=== PATIENT | female | born 1945 | race Caucasian/White ===

== ENCOUNTER 2016-10-31 13:42 | Emergency (ER) | payer MEDICARE ==
[~2016-10-31] VITALS: Ht 162.6 cm; Wt 98.0 kg
[~2016-10-31 13:42] MED LIST: BENA1TAB44 PO; BENA20 PO; CO QCAP PO; METO25CR PO; MULT-118 PO; MULT-65 PO; PRIL40CA PO; RED600TA PO; WAL-10TA2 PO; ZOFR4TAB3 SL
[2016-10-31 13:50] VITALS: BP 157/70; PULSE 83; RESP 16; TEMP 97.8; O2SAT 95
[2016-10-31] MEDS ORDERED: COQ130CA PO (16:15)
[2016-10-31] MEDS ORDERED: RED600TA PO (16:15)
[2016-10-31] MEDS ORDERED: BENA20TA4 PO (16:15)
[2016-10-31] MEDS ORDERED: METO25TA6 PO (16:15)
[2016-10-31] MEDS ORDERED: OMEP40CA2 PO (16:15)
[2016-10-31] MEDS ORDERED: MULT1TAB46 PO (16:15)
[2016-10-31] MEDS ORDERED: BENA20TA PO (16:15)
--- NOTE | 2016-10-31 16:28 | PD ---
HPI Chief Complaint: Eye Problems/Injury Time Seen by Provider: 16:12 Travel History International Travel<30 days: No Contact w/Intl Traveler<30days: No Traveled to known affect area: No History of Present Illness HPI The patient is a 71-year-old female who presents emergency department for flashes and floaters in the right eye. The patient states she developed early floater in the right eye 2 days ago dislocated at the 8 o'clock position on o' clock, when she moves her eye to left or right, the small spot always stays in the same area. The patient then developed a small amount of flashing in the affected area earlier today. The patient is afraid she may have a retinal detachment and sought treatment in the emergency department. She denies any visual acuity changes, photophobia, eye pain, redness, tearing, or history of retinal detachment. She denies any trauma to the right eye or associated headache. Symptoms are mild, there are no current alleviating or exacerbating factors. PFSH Past Medical History Arthritis: Yes (KNEES) Asthma: No Atrial Fibrillation: Yes (PER PATIENT) Heart Rhythm Problems: Yes (afib when devlops HTN EPISODES) Cardiovascular Problems: Yes High Cholesterol: Yes (DIET CONTROLLED) Chest Pain: No Congestive Heart Failure: No COPD: No Cerebrovascular Accident: No Diabetes: No Diminished Hearing: Yes ([place]) Gastrointestinal Disorders: Yes GERD: No Genitourinary: No Hepatitis: No Hiatal Hernia: No Hypertension: Yes Kidney Stones: No Musculoskeletal: No Neurologic: No Reproductive: No Respiratory: No Immunizations Current: No Migraines: No Myocardial Infarction: No Renal Failure: No Seizures: No Sleep Apnea: No Ulcer: No PNEUMOCCOCAL Vaccine (Year): 2008 Menopausal: Yes Past Surgical History Abdominal Surgery: No Appendectomy: Yes Cardiac Surgery: No Cholecystectomy: No Ear Surgery: No Endocrine Surgery: No Eye Surgery: No Genitourinary Surgery: No Gynecologic Surgery: Yes (HYSTERECTOMY) Hysterectomy: Yes Oral Surgery: No Thoracic Surgery: No Other Surgery: Yes (2 MOLES REMOVED AXILLA AREA) Social History Alcohol Use: Yes (SOCIALLY) Tobacco Use: No (NEVER) Substance Use: No Allergies-Medications (Allergen,Severity, Reaction): Coded Allergies: tetanus toxoid, adsorbed (Unverified Allergy, Severe, Swelling, 10/31/16) erythromycin base (Unverified Allergy, Mild, NAUSEA, 10/31/16) Reported Meds & Prescriptions Reported Meds & Active Scripts Active Reported Red Yeast Rice (Red Yeast Rice Extract) 600 Mg Tab 1,200 Mg PO BID Omeprazole 40 Mg Cap 40 Mg PO DAILY Multi Vitamin Daily (Multiple Vitamin) 1 Tab Tab 1 Tab PO DAILY Metoprolol Succinate ER 24 HR (Metoprolol Succinate) 25 Mg Tab 25 Mg PO DAILY Coq10 (Coenzyme Q10 (Ubidecarenone)) 30 Mg Cap 1 Tab PO DAILY Benazepril-Hydrochlorothiazide 20-25 Mg Tab 1 Tab PO DAILY Benazepril (Benazepril HCl) 20 Mg Tab 20 Mg PO DAILY Review of Systems Except as stated in HPI: all other systems reviewed are Neg Eyes: Positive: Other (as noted in the history of present illness), No: Diploplia, Blurred Vision, Photophobia, Drainage, Redness, Foreign Body Sensation, Pain, Tearing, Blind Spots HENT: No: Headaches Gastrointestinal: No: Nausea, Vomiting Physical Exam Narrative GENERAL: Awake, alert, pleasant 71-year-old female who appears her stated age and is in no acute respiratory distress. SKIN: Focused skin assessment warm/dry. HEAD: Atraumatic. Normocephalic. EYES: Pupils equal and round. Pupils are 4 mm bilateral and reactive. EOMs are intact. Patient is a was see fingers at a distance of 2 feet without difficulty. I exam reveals vision of the right 20/200, left 20/25, bilateral 20 /20. There is no injection noted of the conjunctiva. No hyphema noted. Funduscopic examination reveals a clear disc, I cannot visualize an obvious detachment. ENT: No nasal bleeding or discharge. Mucous membranes pink and moist. NECK: Trachea midline. No JVD. MUSCULOSKELETAL: No obvious deformities. No clubbing. No cyanosis. No edema. NEUROLOGICAL: Awake and alert. No obvious cranial nerve deficits. Motor grossly within normal limits. Normal speech. PSYCHIATRIC: Appropriate mood and affect; insight and judgment normal. Data Data Last Documented VS Vital Signs Date Time Temp Pulse Resp B/P (MAP) Pulse Ox O2 Delivery O2 Flow Rate FiO2 10/31/16 13:50 97.8 83 16 157/70 (99) 95 Room Air MDM Medical Decision Making Medical Screen Exam Complete: Yes Emergency Medical Condition: Yes Medical Record Reviewed: Yes Differential Diagnosis Differential diagnosis includes retinal detachment, vitreous hemorrhage, flashes /floaters, hyphema. Narrative Course The patient has flashes and floaters, could be idiopathic vitreous floater versus retinal detachment is versus choroidal lesion. The patient is advised to follow-up with circular saw filer as soon as possible. Diagnosis Primary Impression: Vitreous floaters of right eye Referrals: Cinthya Ladd MD 2 days F/U with Wednesday if you do not follow up with your circular saw filer, Dr. Demarco Additional Instructions: Follow-up with your circular saw filer as soon as possible. Disposition: 01 DISCHARGE HOME Condition: Stable Mitchell Howell MD Oct 31, 2016 16:28
== END 2016-10-31 16:59 | disposition home or self-care (01) ==
LOC: PHED 13:42 → PHEFT 16:59
DX: H43.391 Other vitreous opacities, right eye (principal); E78.00 Pure hypercholesterolemia, unspecified; H57.9 Unspecified disorder of eye and adnexa; H91.90 Unspecified hearing loss, unspecified ear; I10 Essential (primary) hypertension; I48.91 Unspecified atrial fibrillation
CPT/HCPCS: 99282

== ENCOUNTER 2016-11-30 09:30 | Observation (INO) | payer MEDICARE ==
[~2016-11-30] VITALS: Ht 162.6 cm; Wt 97.5 kg
[2016-11-30] VITALS (9 sets, daily range): BP systolic 152–193; BP diastolic 82–102; PULSE 68–89; RESP 18–20; TEMP 97–97.6; O2SAT 96–100
[~2016-11-30 09:30] MED LIST changes: -BENA1TAB44 PO; -BENA20 PO; +BENA20TA PO; +BENA20TA4 PO; -CO QCAP PO; +COQ130CA PO; -METO25CR PO; +METO25TA6 PO; -MULT-118 PO; -MULT-65 PO; +MULT1TAB46 PO; +OMEP40CA2 PO; -PRIL40CA PO; -WAL-10TA2 PO; -ZOFR4TAB3 SL
--- NOTE | 2016-11-30 09:54 | PD ---
HPI Chief Complaint: Dizziness Time Seen by Provider: 09:38 Travel History International Travel<30 days: No Contact w/Intl Traveler<30days: No Traveled to known affect area: No History of Present Illness HPI This is a 71-year-old female who presents to the emergency department with vertigo. She started to have dizziness this morning when she woke up from sleep and the room was spinning and she felt like she was drunk that she hasn't drank anything, constant, severe, improved with resting but not completely gone away. She doesn't think it's worse to one side or the other. She has thrown up and has difficulty walking. She denies any headache. She's not been sick recently. PFSH Past Medical History Arthritis: Yes (KNEES) Asthma: No Atrial Fibrillation: Yes (PER PATIENT) Heart Rhythm Problems: Yes (afib when devlops HTN EPISODES) Cardiovascular Problems: Yes High Cholesterol: Yes (DIET CONTROLLED) Chest Pain: No Congestive Heart Failure: No COPD: No Cerebrovascular Accident: No Diabetes: No Diminished Hearing: Yes (SOME [place]) Gastrointestinal Disorders: Yes GERD: No Genitourinary: No Hepatitis: No Hiatal Hernia: No Hypertension: Yes Kidney Stones: No Musculoskeletal: No Neurologic: No Reproductive: No Respiratory: No Immunizations Current: No Migraines: No Myocardial Infarction: No Renal Failure: No Seizures: No Sleep Apnea: No Ulcer: No Influenza Vaccination: Yes PNEUMOCCOCAL Vaccine (Year): 2008 ?: Not Menopausal: Yes Past Surgical History Abdominal Surgery: No Appendectomy: Yes Cardiac Surgery: No Cholecystectomy: No Ear Surgery: No Endocrine Surgery: No Eye Surgery: No Genitourinary Surgery: No Gynecologic Surgery: Yes (HYSTERECTOMY) Hysterectomy: Yes Neurologic Surgery: No Oral Surgery: No Thoracic Surgery: No Other Surgery: Yes (2 MOLES REMOVED AXILLA AREA) Social History Alcohol Use: Yes (SOCIALLY) Tobacco Use: No (NEVER) Substance Use: No Allergies-Medications (Allergen,Severity, Reaction): Coded Allergies: tetanus toxoid, adsorbed (Unverified Allergy, Severe, Swelling, 11/30/16) erythromycin base (Unverified Allergy, Mild, NAUSEA, 11/30/16) Reported Meds & Prescriptions Reported Meds & Active Scripts Active Reported Red Yeast Rice (Red Yeast Rice Extract) 600 Mg Tab 1,200 Mg PO BID Omeprazole 40 Mg Cap 40 Mg PO DAILY Multi Vitamin Daily (Multiple Vitamin) 1 Tab Tab 1 Tab PO DAILY Metoprolol Succinate ER 24 HR (Metoprolol Succinate) 25 Mg Tab 25 Mg PO DAILY Coq10 (Coenzyme Q10 (Ubidecarenone)) 30 Mg Cap 1 Tab PO DAILY Benazepril-Hydrochlorothiazide 20-25 Mg Tab 1 Tab PO DAILY Benazepril (Benazepril HCl) 20 Mg Tab 20 Mg PO DAILY Review of Systems Except as stated in HPI: all other systems reviewed are Neg Physical Exam Narrative GENERAL:Well appearing, no acute distress SKIN: Focused skin assessment warm and dry. HEAD: Atraumatic. Normocephalic. EYES: Pupils equal and round. No injection or drainage. ENT: Moist mucous membranes NECK: Trachea midline. CARDIOVASCULAR: Regular rate and rhythm. No murmur appreciated. RESPIRATORY: Clear to auscultation. Breath sounds equal bilaterally. GASTROINTESTINAL: Abdomen soft, non-tender, nondistended. MUSCULOSKELETAL: No obvious deformities. NEUROLOGICAL: Awake and alert. No obvious cranial nerve deficits. No ataxia. No dysarthria. Horizontal nystagmus to the left. PSYCHIATRIC: Appropriate mood and affect; insight and judgment normal. Data Data Last Documented VS Vital Signs Date Time Temp Pulse Resp B/P (MAP) Pulse Ox O2 Delivery O2 Flow Rate FiO2 11/30/16 11:15 74 18 177/89 (118) 99 Room Air 11/30/16 09:44 97.6 Orders Orders Mri Brain W/O Contrast (11/30/16 ) Meclizine (Antivert) (11/30/16 10:00) Complete Blood Count With Diff (11/30/16 12:29) Comprehensive Metabolic Panel (11/30/16 12:29) ^ Insert Iv (11/30/16 12:29) Ondansetron Inj (Zofran Inj) (11/30/16 12:30) Sodium Chlor 0.9% 1000 Ml Inj (Ns 1000 M (11/30/16 12:30) Ckmb (Isoenzyme) Profile (11/30/16 12:29) Troponin I (11/30/16 12:29) MDM Medical Decision Making Medical Screen Exam Complete: Yes Emergency Medical Condition: Yes Interpretation(s) Last 24 hours Impressions Brain MRI 11/30/16 0000 Signed Impressions: Service Date/Time: Wednesday, November 30, 2016 11:49 - CONCLUSION: There is no restricted diffusion suggest acute stroke 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 Contrasted MRI is suggested Partially empty sella. There is no evidence for acoustic neuroma There is no mastoid disease. Kun Stinson MD FACR Differential Diagnosis BPPV, vestibular neuritis, stroke, tumor Narrative Course This is a 71-year-old female who presents to the emergency department with vertigo. Given her age and clinical features an MRI was obtained which demonstrates a mass in the lateral ventricle. I doubt this is related to her symptoms but she doesn't feel any better following meclizine. She is unable to stand. Patient will be placed in observation for continued symptomatic control and MRI with contrast. Diagnosis Primary Impression: Vertigo Admitting Information Admitting Physician Requests: Observation Scripts Meclizine HCl (Meclizine 25) 25 Mg Tab 25 MG PO Q6H Y for dizziness, vertigo, #31 TAB Prov: Graciela Solorio MD 12/01/16 Payton Kelly MD Nov 30, 2016 09:54
[2016-11-30] MEDS ORDERED: MECLIZINE HCL 25 MG TAB PO ONE (10:00)
--- NOTE | 2016-11-30 12:15 | RADRPT ---
EXAM DATE/TIME: 11/30/2016 11:49 [facility] COMPARISON: No previous studies available for comparison. INDICATIONS : Stroke. MEDICAL HISTORY : None. SURGICAL HISTORY : Appendectomy. Hysterectomy. ENCOUNTER: Initial ACUITY: 1 day PAIN SCORE: 7/10 LOCATION: Bilateral cranial TECHNIQUE: Multiplanar, multisequence MRI of the brain was performed without contrast. FINDINGS: There is no restricted diffusion to suggest infarction. Ventricular size is appropriate. Scattered pe riventricular white matter changes are noted. There is a 1 cm intraventricular mass left lateral ventricle incompletely evaluated on this exam with out contrast. There is no parenchymal hemorrhage. Partial empty sella is evident. Posterior fossa is unremarkable. There are no significant extra-axial fluid collections appreciated. 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 Contrasted MRI is suggested Partially empty sella. There is no evidence for acoustic neuroma There is no mastoid disease. Kun Stinson MD FACR on November 30, 2016 at 12:10 Board Certified Radiologist. This report was verified electronically.
[2016-11-30] MEDS ORDERED: ONDANSETRON HCL 4 MG/2 ML VIAL IV PUSH ONE (12:30)
[2016-11-30] MEDS ORDERED: SODIUM CHLOR 0.9% 1000 ML INJ 1,000 ML IV ONE (12:30)
[2016-11-30] MEDS ORDERED: LISINOPRIL 20 MG TAB PO ONE (13:00)
[2016-11-30] MEDS ORDERED: METOPROLOL SUCCINATE 25 MG EXTENDED RELEASE TAB PO ONE (13:00)
[2016-11-30] MEDS ORDERED: PROCHLORPERAZINE 25 MG SUPP RECTAL PRN (13:15)
[2016-11-30] MEDS ORDERED: ONDANSETRON HCL 4 MG/2 ML VIAL IVP PRN (13:15)
[2016-11-30] MEDS ORDERED: MECLIZINE HCL 25 MG TAB PO PRN (13:15)
[2016-11-30] MEDS ORDERED: ACETAMINOPHEN 325 MG TAB PO PRN (13:15)
[2016-11-30] MEDS ORDERED: NALOXONE HCL 0.4 MG/ML AMP IV PUSH PRN (13:15)
[2016-11-30] MEDS ORDERED: LISINOPRIL 20 MG TAB PO SCH (13:30)
[2016-11-30] MEDS ORDERED: HYDROCHLOROTHIAZIDE 25 MG TAB PO ONE (13:30)
[2016-11-30 13:48] LABS: AUTOMATED NEUTROPHIL # 6.7 TH/MM3 (1.8-7.7); BASOPHIL % 0.3 % (0.0-2.0); EOSINOPHIL % 0.5 % (0.0-4.0); HEMO FLAGS DIFF FINAL; LYMPH % 16.7 % (9.0-44.0); LYMPHOCYTE # 1.4 TH/MM3 (1.0-4.8); MEAN CELL VOLUME 83.4 FL (80.0-100.0); MEAN CORPUSCULAR HEMOGLOBIN 27.4 PG (27.0-34.0); MEAN CORPUSCULAR HGB CONC 32.9 % (32.0-36.0); MONO % 2.7 % (0.0-8.0); NEUT % 79.8 % (16.0-70.0); PLATELET COUNT 421 TH/MM3 (150-450); RED BLOOD COUNT 5.16 MIL/MM3 (4.00-5.30); RED CELL DISTRIBUTION WIDTH 13.2 % (11.6-17.2); WHITE BLOOD COUNT 8.3 TH/MM3 (4.0-11.0)
[2016-11-30 13:52] LABS: CHLORIDE 98 MEQ/L (98-107); POTASSIUM 3.8 MEQ/L (3.5-5.1); SODIUM (NA) 133 MEQ/L (136-145)
[2016-11-30 13:56] LABS: ANION GAP 10 MEQ/L (5-15); BICARBONATE 24.8 MEQ/L (21.0-32.0); BLOOD UREA NITROGEN 11 MG/DL (7-18)
[2016-11-30 13:59] LABS: ALT (GPT) 25 U/L (10-53); AST (GOT) 20 U/L (15-37); GLOMERULAR FILTRATION RATE 64 ML/MIN (>89)
[2016-11-30 14:01] LABS: TOTAL BILIRUBIN ADULT 0.8 MG/DL (0.2-1.0)
[2016-11-30] MEDS: HEPARIN SODIUM - SQ 10,000 UNITS/ML VIAL SQ SCH ×2 (14:01→20:29)
[2016-11-30 14:02] LABS: ALKALINE PHOSPHATASE 107 U/L (45-117)
[2016-11-30 14:03] LABS: CREATINE KINASE 62 U/L (26-192)
[2016-11-30] MEDS ORDERED: GADODIAMIDE PF 287 MG/ML 20 ML VIAL (for RAD MRI) IVCONTRAST ONE (16:00)
[2016-11-30] MEDS: SODIUM CHLOR 0.9% 1000 ML INJ 1,000 ML IV SCH (16:26)
--- NOTE | 2016-11-30 16:32 | RADRPT ---
EXAM DATE/TIME: 11/30/2016 15:38 [facility] COMPARISON: MRI BRAIN W/O CONTRAST, November 30, 2016, 11:49. INDICATIONS : Tumor. CONTRAST: 20 cc Omniscan (gadodiamide) IV MEDICAL HISTORY : Hypertension. SURGICAL HISTORY : Appendectomy. Hysterectomy. ENCOUNTER: Initial ACUITY: 1 day PAIN SCORE: 2/10 LOCATION: Bilateral cranial TECHNIQUE: Multiplanar, multisequence MRI of the brain was performed both prior to and following the administrat ion of paramagnetic contrast. FINDINGS: There is a mildly T2 hyperintense and T1 hypointense mass in the left lateral ventricle measuring 10 x 8 mm. It demonstrates no definite internal enhancement. Also, demonstrates no restricted diffusion or blood products. Lateral ventricles are normal in size. It has mild local mass effect on the adjace nt septum pellucidum. No other mass is visualized. There is stable mild periventricular white matter signal change. Otherwi se, there has been no significant change from the study performed earlier today. CONCLUSION: The 10 mm left lateral ventricle mass demonstrates no significant enhancement and no other lesions ar e seen. 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 Suggest correlation with clinical history to ensure that there are no primary tumors which could meta stasize. Imaging features are not typical for a choroid plexus cyst or meningioma. If etiology remain s uncertain suggest followup imaging to confirm stability. Prem Dias MD on November 30, 2016 at 16:23 Board Certified Radiologist. This report was verified electronically.
--- NOTE | 2016-11-30 17:27 | HHI.HP ---
[facility] Service [facility] Primary Care Physician Soren Shane MD Admission Diagnosis vertigo Diagnoses: (1) Dizziness Diagnosis: Principal (2) Brain mass Diagnosis: Principal (3) Hypertension Diagnosis: Principal Chief Complaint: Dizziness Travel History International Travel<30 Days: No Contact w/Intl Traveler <30 Da: No Traveled to Known Affected Are: No History of Present Illness Written by Ramón Maldonado, acting as scribe for Dr. Orosco on 11/30/16 at 17: 18. 71-year-old female with known history of hypertension, gastroesophageal reflux, chronic sinusitis, who presented to the hospital because of acute onset of dizziness. Patient states that she was in her normal state of health until this morning. She was doing well she went to sleep and woke up at 2 AM to go to the restroom and she felt a little dizzy at that time. However when she woke up at 6 AM she had severe dizziness. She cannot ambulate without holding onto furniture and the drew. She states that she felt as if the room was spinning. She compared it to being on a 3 day alcohol binge and having a severe hangover. Patient did have one episode of vomiting with the dizziness. Sleep that she thinks he vomited up her morning medications. Patient came to the emergency department for evaluation. She was given Antivert with significant improvement of her symptoms. She states that the room is no longer spinning. She has been able to walk to the restroom without any complications. Patient did have an MRI performed which did indicate a intraventricular mass. Further MRI studies were requested. 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 Patient is doing well this time. ER physician recommended patient be observed in the hospital for further recommendations. Patient denies any fever, chills, upper respiratory symptoms, visual changes, patient does have chronic tinnitus. She has had recent ophthalmology evaluation 4 weeks ago and found to have floaters in her right eye. Review of Systems Constitutional: COMPLAINS OF: Dizziness Gastrointestinal: COMPLAINS OF: Nausea, Vomiting Except as stated in HPI: all other systems reviewed are Neg Past Family Social History Past Medical History Hypertension Gastroesophageal reflux Chronic sinusitis Past Surgical History Hysterectomy Appendectomy Reported Medications Reported Meds & Active Scripts Active Reported Red Yeast Rice (Red Yeast Rice Extract) 600 Mg Tab 1,200 Mg PO BID Omeprazole 40 Mg Cap 40 Mg PO DAILY Multi Vitamin Daily (Multiple Vitamin) 1 Tab Tab 1 Tab PO DAILY Metoprolol Succinate ER 24 HR (Metoprolol Succinate) 25 Mg Tab 25 Mg PO DAILY Coq10 (Coenzyme Q10 (Ubidecarenone)) 30 Mg Cap 1 Tab PO DAILY Benazepril-Hydrochlorothiazide 20-25 Mg Tab 1 Tab PO DAILY Benazepril (Benazepril HCl) 20 Mg Tab 20 Mg PO DAILY Allergies: Coded Allergies: tetanus toxoid, adsorbed (Unverified Allergy, Severe, Swelling, 11/30/16) erythromycin base (Unverified Allergy, Mild, NAUSEA, 11/30/16) Family History Reviewed is significant for father at age 56 from myocardial infarction. Mother at 86 with dementia Social History Patient denies any tobacco, alcohol or illicit drugs Physical Exam Vital Signs Vital Signs Date Time Temp Pulse Resp B/P (MAP) Pulse Ox O2 Delivery O2 Flow Rate FiO2 11/30/16 16:14 98 21 11/30/16 15:15 97.2 84 20 183/87 (119) 98 11/30/16 14:40 11/30/16 13:49 70 18 181/85 (117) 98 Room Air 11/30/16 11:15 74 18 177/89 (118) 99 Room Air 11/30/16 10:02 68 18 176/82 (113) 100 Room Air 11/30/16 09:44 97.6 78 18 193/97 (129) 98 Physical Exam GENERAL: Well-developed, well-nourished, in no acute distress. alert and orientated HEENT: Head is normocephalic without any lesions or masses noted. Facial features are symmetric. Eyes: Pupils equal round reactive to light. Extraocular muscles are intact. Conjunctivae were clear. Oropharyngeal: Pharynx without any erythema edema. Tongue is midline without deviation. Buccal mucosa is moist without any masses or lesions NECK: Supple without any masses. Trachea midline no deviation. No JVD, no bruits are appreciated. Patient had mild dizziness on full neck extension CARDIAC: Regular rhythm, regular rate. S1/S2 are heard. No murmurs gallops or rubs. LUNGS: Clear to auscultation bilaterally. No wheeze, rhonchi or rales. No use of accessory muscles on inspiration or expiration. ABDOMEN: Soft, nontender. Nondistended. Bowel sounds heard in all 4 quadrants. No organomegaly or masses. Negative rebound, negative guarding EXTREMITIES: No edema, pulses are equal bilaterally. No cyanosis or clubbing NEUROLOGY: Mood and affect appear appropriate. Cranial nerves II through XII grossly intact. Muscle strength 5/5 in upper and lower extremities bilaterally. Deep tendon reflexes are 2+ in upper and lower extremities bilaterally. Negative [facility] Laboratory Tests Test 11/30/16 13:40 White Blood Count 8.3 Red Blood Count 5.16 Hemoglobin 14.1 Hematocrit 43.0 Mean Corpuscular Volume 83.4 Mean Corpuscular Hemoglobin 27.4 Mean Corpuscular Hemoglobin Concent 32.9 Red Cell Distribution Width 13.2 Platelet Count 421 Mean Platelet Volume 7.6 Neutrophils (%) (Auto) 79.8 Lymphocytes (%) (Auto) 16.7 Monocytes (%) (Auto) 2.7 Eosinophils (%) (Auto) 0.5 Basophils (%) (Auto) 0.3 Neutrophils # (Auto) 6.7 Lymphocytes # (Auto) 1.4 Monocytes # (Auto) 0.2 Eosinophils # (Auto) 0.0 Basophils # (Auto) 0.0 CBC Comment DIFF FINAL Differential Comment Blood Urea Nitrogen 11 Creatinine 0.87 Random Glucose 104 Total Protein 7.5 Albumin 3.5 Calcium Level 8.7 Alkaline Phosphatase 107 Aspartate Amino Transf (AST/SGOT) 20 Alanine Aminotransferase (ALT/SGPT) 25 Total Bilirubin 0.8 Sodium Level 133 Potassium Level 3.8 Chloride Level 98 Carbon Dioxide Level 24.8 Anion Gap 10 Estimat Glomerular Filtration Rate 64 Total Creatine Kinase 62 Troponin I LESS THAN 0.02 Result Diagram: 11/30/16 1340 11/30/16 1340 Imaging Last Impressions Brain MRI 11/30/16 0000 Signed Impressions: Service Date/Time: Wednesday, November 30, 2016 15:38 - CONCLUSION: The 10 mm left lateral ventricle mass demonstrates no significant enhancement and no other lesions are seen. 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 Suggest correlation with clinical history to ensure that there are no primary tumors which could metastasize. Imaging features are not typical for a choroid plexus cyst or meningioma. If etiology remains uncertain suggest followup imaging to confirm stability. MD Pratik Douglass VTE Risk Assessment Caprini VTE Risk Assessment: Mod/High Risk (score >= 2) Caprini Risk Assessment Model Point Value = 1 Point Value = 2 Point Value = 3 Point Value = 5 Age 41-60 Minor surgery BMI > 25 kg/m2 Swollen legs Varicose veins or History of unexplained or recurrent spontaneous Oral contraceptives or hormone replacement Sepsis (< 1 month) Serious lung disease, including pneumonia (< 1 month) Abnormal pulmonary function Acute myocardial infarction Congestive heart failure (< 1 month) History of inflammatory bowel disease Medical patient at bed rest Age 61-74 Arthroscopic surgery Major open surgery (> 45 min) Laparoscopic surgery (> 45 min) Malignancy Confined to bed (> 72 hours) Immobilizing plaster cast Central venous access Age >= 75 History of VTE Family history of VTE Factor V Leiden Prothrombin [id number] Lupus anticoagulant Anticardiolipin antibodies Elevated serum homocysteine Heparin-induced thrombocytopenia Other congenital or acquired thrombophilia Stroke (< 1 month) Elective arthroplasty Hip, pelvis, or leg fracture Acute spinal cord injury (< 1 month) Prophylaxis Regimen Total Risk Factor Score Risk Level Prophylaxis Regimen 0-1 Low Early ambulation 2 Moderate Order ONE of the following: *Sequential Compression Device (SCD) *Heparin 5000 units SQ BID 3-4 Higher Order ONE of the following medications: *Heparin 5000 units SQ TID *Enoxaparin/Lovenox 40 mg SQ daily (WT < 150 kg, CrCl > 30 mL/min) *Enoxaparin/Lovenox 30 mg SQ daily (WT < 150 kg, CrCl > 10-29 mL/min) *Enoxaparin/Lovenox 30 mg SQ BID (WT < 150 kg, CrCl > 30 mL/min) AND/OR *Sequential Compression Device (SCD) 5 or more Highest Order ONE of the following medications: *Heparin 5000 units SQ TID (Preferred with Epidurals) *Enoxaparin/Lovenox 40 mg SQ daily (WT < 150 kg, CrCl > 30 mL/min) *Enoxaparin/Lovenox 30 mg SQ daily (WT < 150 kg, CrCl > 10-29 mL/min) *Enoxaparin/Lovenox 30 mg SQ BID (WT < 150 kg, CrCl > 30 mL/min) AND *Sequential Compression Device (SCD) Assessment and Plan Assessment and Plan Dizziness, vertigo, significantly improved Patient had MRI study performed which did not indicate acute etiology of her dizziness Monitor for benign positional paroxysmal vertigo Continue Antivert Consult PT for Cheryle maneuver We also will check cardiac enzyme however patient does not have chest pain first set negative Brain mass MRI showed a 10 mm lateral ventricle mass without any significant enhancement or other lesions. 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 Recommending follow-up imaging to confirm stability Patient counseled to follow up outpatient with primary medical doctor Hypertension Continue home medications DVT prevention Sequential compression devices This note was transcribed by scribe [Ramón Maldonado]. I, Dr. Reed Orosco personally performed the history, physical exam, and medical decision making; and confirmed the accuracy of the information in the transcribed note. Authenticated by Dr. Reed Orosco on 11/30/16 at 17:28. Ramón Maldonado Nov 30, 2016 17:26 Reed Orosco MD Nov 30, 2016 17:29
[2016-11-30 18:02] LABS: GLUCOSE,URINE NEG (NEG); KETONE, URINE NEG (NEG); NITRITE,URINE NEG (NEG); PH, URINE 6.5 (5.0-8.5)
[2016-11-30 18:06] LABS: BLOOD, URINE TRACE (NEG)
[2016-11-30 18:27] LABS: COMMENT (UR) CULT NOT INDICATED; CULTURE IF INDICATED CULT NOT INDICATED; RBC, URINE 0-3 /hpf (0-3); SQUAMOUS EPITHELIAL CELL URINE 0-5 /hpf (0-5); URINE COLOR YELLOW (YELLW/STRAW); WBC, URINE 0-2 /hpf (0-5)
[2016-11-30 20:04] LABS: CREATINE KINASE 61 U/L (26-192)
[2016-11-30] MEDS ORDERED: PANTOPRAZOLE SOD 40 MG DELAYED RELEASE TAB PO ONE (21:00)
[2016-12-01] VITALS: BP_SYST 148; BP_SYST 150; BP_SYST 158; BP_DIAS 79; BP_DIAS 83; BP_DIAS 85; PULSE 83; PULSE 84; PULSE 86; RESP 20; TEMP 96.7; O2SAT 96
[2016-12-01] MEDS: SODIUM CHLOR 0.9% 1000 ML INJ 1,000 ML IV SCH ×2 (01:24→08:52)
[2016-12-01 02:17] LABS: CREATINE KINASE 67 U/L (26-192)
[2016-12-01 04:00] VITALS: BP_SYST 151; BP_SYST 152; BP_SYST 160; BP_DIAS 78; BP_DIAS 86; PULSE 70; PULSE 80; RESP 20; TEMP 96.3; O2SAT 96
[2016-12-01] MEDS: HEPARIN SODIUM - SQ 10,000 UNITS/ML VIAL SQ SCH (06:06)
[2016-12-01 06:23] LABS: BASOPHIL % 0.7 % (0.0-2.0); EOSINOPHIL # 0.1 TH/MM3 (0-0.4); HEMATOCRIT 36.9 % (35.0-46.0); HEMO FLAGS DIFF FINAL; LYMPH % 36.1 % (9.0-44.0); LYMPHOCYTE # 2.6 TH/MM3 (1.0-4.8); MEAN CELL VOLUME 83.6 FL (80.0-100.0); MEAN CORPUSCULAR HEMOGLOBIN 28.4 PG (27.0-34.0); MONO % 5.7 % (0.0-8.0); NEUT % 55.5 % (16.0-70.0); PLATELET COUNT 353 TH/MM3 (150-450); RED BLOOD COUNT 4.42 MIL/MM3 (4.00-5.30); WHITE BLOOD COUNT 7.1 TH/MM3 (4.0-11.0)
[2016-12-01 06:30] LABS: POTASSIUM 3.5 MEQ/L (3.5-5.1)
[2016-12-01 06:34] LABS: PROTHROMBIN TIME - PATIENT 10.7 SEC (9.8-11.6)
[2016-12-01 08:00] VITALS: BP 155/73; PULSE 76; RESP 19; TEMP 97.7; O2SAT 96; O2SAT 97
[2016-12-01] MEDS ORDERED: NON-FORMULARY DRUG (Benazepril-Hydrochlorothiazide 1 TAB) PO SCH (09:00)
[2016-12-01] MEDS ORDERED: HYDROCHLOROTHIAZIDE 25 MG TAB PO SCH (09:00)
[2016-12-01] MEDS ORDERED: METOPROLOL SUCCINATE 25 MG EXTENDED RELEASE TAB PO SCH (09:00)
[2016-12-01] MEDS ORDERED: LISINOPRIL 20 MG TAB PO SCH (09:00)
[2016-12-01] MEDS ORDERED: PNEUMOCOCCAL POLYVALENT INJ 25 MCG/0.5 ML SYR IM ONE (10:00)
[2016-12-01] MEDS ORDERED: MECL1TAB42 PO (11:20)
--- NOTE | 2016-12-01 11:20 | HHI.DCPOC ---
Discharge Care Plan Diagnosis: (1) Vertigo (2) Brain mass Goals to Promote Your Health * To prevent worsening of your condition and complications * To maintain your health at the optimal level Directions to Meet Your Goals Take your medications as prescribed Follow your dietary instruction Follow activity as directed Keep your appointments as scheduled Take your immunizations and boosters as scheduled If your symptoms worsen call your PCP, if no PCP go to Urgent Care Center or Emergency Room Smoking is Dangerous to Your Health. Avoid second hand smoke Call the 24-hour hour crisis hotline for domestic abuse at Graciela Solorio MD Dec 01, 2016 11:20
--- NOTE | 2016-12-01 11:24 | HHI.DS ---
cc: Soren Shane MD Discharge Summary Admission Date Nov 30, 2016 at 12:43 Discharge Date: Dec 01, 2016 Admitting Diagnosis vertigo (1) Hypertension ICD Code: I10 - Essential (primary) hypertension Diagnosis: Principal (2) Vertigo ICD Code: R42 - Dizziness and giddiness (3) Brain mass ICD Code: G93.9 - Disorder of brain, unspecified Diagnosis: Principal Procedures none Brief History - From Admission Written by Ramón Maldonado, acting as scribe for Dr. Orosco on 11/30/16 at 17: 18. 71-year-old female with known history of hypertension, gastroesophageal reflux, chronic sinusitis, who presented to the hospital because of acute onset of dizziness. Patient states that she was in her normal state of health until this morning. She was doing well she went to sleep and woke up at 2 AM to go to the restroom and she felt a little dizzy at that time. However when she woke up at 6 AM she had severe dizziness. She cannot ambulate without holding onto furniture and the drew. She states that she felt as if the room was spinning. She compared it to being on a 3 day alcohol binge and having a severe hangover. Patient did have one episode of vomiting with the dizziness. Sleep that she thinks he vomited up her morning medications. Patient came to the emergency department for evaluation. She was given Antivert with significant improvement of her symptoms. She states that the room is no longer spinning. She has been able to walk to the restroom without any complications. Patient did have an MRI performed which did indicate a intraventricular mass. Further MRI studies were requested. 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 Patient is doing well this time. ER physician recommended patient be observed in the hospital for further recommendations. Patient denies any fever, chills, upper respiratory symptoms, visual changes, patient does have chronic tinnitus. She has had recent ophthalmology evaluation 4 weeks ago and found to have floaters in her right eye. CBC/BMP: 12/01/16 0527 12/01/16 0527 Significant Findings Laboratory Tests Test 11/30/16 13:40 11/30/16 17:45 11/30/16 19:20 12/01/16 01:20 Neutrophils (%) (Auto) 79.8 % (16.0-70.0) Sodium Level 133 MEQ/L (136-145) Estimat Glomerular Filtration Rate 64 ML/MIN (>89) Troponin I LESS THAN 0.02 NG/ML LESS THAN 0.02 NG/ML LESS THAN 0.02 NG/ML Urine Occult Blood TRACE (NEG) Test 12/01/16 05:27 Calcium Level 8.3 MG/DL (8.5-10.1) Estimat Glomerular Filtration Rate 79 ML/MIN (>89) Imaging Last Impressions Brain MRI 11/30/16 0000 Signed Impressions: Service Date/Time: Wednesday, November 30, 2016 15:38 - CONCLUSION: The 10 mm left lateral ventricle mass demonstrates no significant enhancement and no other lesions are seen. 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 Suggest correlation with clinical history to ensure that there are no primary tumors which could metastasize. Imaging features are not typical for a choroid plexus cyst or meningioma. If etiology remains uncertain suggest followup imaging to confirm stability. Prem Dias MD PE at Discharge GENERAL: This is a well-nourished, well-developed patient, in no apparent distress. CARDIOVASCULAR: Regular rate and rhythm without murmurs, gallops, or rubs. RESPIRATORY: Clear to auscultation. Breath sounds equal bilaterally. No wheezes , rales, or rhonchi. GASTROINTESTINAL: Abdomen soft, non-tender, nondistended. Normal active bowel sounds MUSCULOSKELETAL: Extremities without clubbing, cyanosis, or edema. NEURO: Alert & Oriented x4 to person, place, time, situation. Moves all ext x4 Pt update on day of discharge Patient seen in follow up for vertiginous symptoms. These are resolved. Meclizine has improved her symptoms. Patient also informed of her abnormal MRI findings which she will follow-up with her primary care provider. I do not think these are related to her current symptoms. Hospital Course Patient is a very pleasant 71-year-old female who came in complaining of dizziness. The patient did have some clinical signs symptoms consistent with benign positional vertigo. She did have MRI which is abnormal and showed a 10 mm ventricular mass which is likely unrelated to her symptoms. The patient continued to improve. She was dehydrated and continued to improve with IV hydration as well. She was discharged home with instructions to follow-up with her primary care provider. Pt Condition on Discharge: Good Discharge Disposition: Discharge Home Discharge Time: > 30 minutes Discharge Instructions DIET: Follow Instructions for: As Tolerated, No Restrictions Activities you can perform: Regular-No Restrictions Follow up Referrals: PCP Follow-up - 1 Week New Medications: Meclizine HCl (Meclizine 25) 25 Mg Tab 25 MG PO Q6H PRN for dizziness, vertigo, #31 TAB Continued Medications: Benazepril (Benazepril) 20 Mg Tab 20 MG PO DAILY for Blood Pressure Management, #30 TAB 0 Refills Benazepril-Hydrochlorothiazide (Benazepril-Hydrochlorothiazide) 20-25 Mg Tab 1 TAB PO DAILY for Blood Pressure Management, #30 TAB 0 Refills Coenzyme Q10 (Ubidecarenone) (Coq10) 30 Mg Cap 1 TAB PO DAILY Metoprolol Succinate ER 24 HR (Metoprolol Succinate ER 24 HR) 25 Mg Tab 25 MG PO DAILY, #30 TAB 0 Refills Multiple Vitamin (Multi Vitamin Daily) 1 Tab Tab 1 TAB PO DAILY Omeprazole (Omeprazole) 40 Mg Cap 40 MG PO DAILY, #30 CAP 0 Refills Red Yeast Rice Extract (Red Yeast Rice) 600 Mg Tab 1200 MG PO BID Graciela Solorio MD Dec 01, 2016 11:24
== END 2016-12-01 12:25 | disposition home or self-care (01) ==
LOC: PHED 09:30 → PHEDA 12:43 → PH3B 14:39
PROVIDERS: ADMIT Hospitalist; ATTEND Hospitalist
DX: R42 Dizziness and giddiness (principal); R26.2 Difficulty in walking, not elsewhere classified; R11.10 Vomiting, unspecified; I48.91 Unspecified atrial fibrillation; E78.00 Pure hypercholesterolemia, unspecified; I10 Essential (primary) hypertension; G93.9 Disorder of brain, unspecified; K21.9 Gastro-esophageal reflux disease without esophagitis; J32.9 Chronic sinusitis, unspecified; H81.10 Benign paroxysmal vertigo, unspecified ear; E86.0 Dehydration; Z23 Encounter for immunization
CPT/HCPCS: 70551; 70553; 80048; 80053; 81001; 82550; 82948; 84484; 85025; 85610; 90732; 96361; 96372; 96374; 99285; A9579; G0009; G0378; J1644; J2405; J7030; 90471